=== PATIENT | female | born 1980 | race African-American/Black ===

== ENCOUNTER 2020-04-01 08:11 | Emergency (ER) | payer OTHER, SELFPAY ==
[2020-04-01 08:21] VITALS: BP 130/80; O2SAT 99
[2020-04-01 08:27] VITALS: BP 130/80; PULSE 94; RESP 20; TEMP 36.6; O2SAT 94
[2020-04-01 08:30] VITALS: PULSE 92; O2SAT 98
--- NOTE | 2020-04-01 08:43 | DI.RAD.S_ITS ---
PROCEDURE: XR CHEST 1V INDICATIONS: Cough and SOB TECHNIQUE: One view of the chest was acquired. COMPARISON: None. FINDINGS: Surgical changes and devices: None. Lungs and pleura: Patchy bilateral interstitial infiltrates and patchy areas consolidation in the left lung base. No pleural effusions or pneumothorax. Mediastinum: Mediastinal contours appear normal. Heart size is normal. Bones and chest wall: No suspicious bony lesions. Overlying soft tissues appear unremarkable. IMPRESSION: Patchy bilateral infiltrates may potentially represent viral pneumonia. Dictated by: Nael Linda M.D. on 04/01/2020 at 9:19 Approved by: Nael Linda M.D. on 04/01/2020 at 9:23
[2020-04-01 09:00] VITALS: PULSE 87; O2SAT 98
[2020-04-01 09:19] LABS: COVID19 -Nasal RAPID POSITIVE (Negative)
[2020-04-01 09:30] VITALS: PULSE 89; O2SAT 99
--- NOTE | 2020-04-01 09:30 | ED.GENADULT ---
HPI - General Adult General Chief complaint: Upper Respiratory Symptoms Stated complaint: sob/coughing/chest cold Time Seen by Provider: 04/01/20 08:42 Source: patient Mode of arrival: Ambulatory Limitations: no limitations History of Present Illness HPI narrative: Patient is a 39-year-old female here for evaluation of a shortness of breath and cough and productive cough. States been going on for the past 5 days. No recent travel. No known COVID exposures. States she does not feel congested. Review of Systems Constitutional Constitutional: Denies fever(s) Cardiovascular Cardiovascular: Denies chest pain and Reports dyspnea Respiratory Respiratory: Reports cough, Reports excessive phlegm production and Reports dyspnea Gastrointestinal Gastrointestinal: Denies abdominal pain, Denies nausea and Denies vomiting Integumentary/Breasts Skin/Breast: Denies rash Neurologic Neurologic: Denies behavioral changes Psychiatric Psychiatric: Denies behavioral changes Patient History Medical History Patient denies medical problems Social History Smoking Status: Never smoker Smoking Status: Never smoker alcohol intake frequency: 0-2 drinks per day Substance Use Type: does not use Exam Initial Vital Signs Initial Vital Signs: Vital Signs Temperature 97.8 F 04/01/20 08:27 Pulse Rate 94 H 04/01/20 08:27 Respiratory Rate 20 04/01/20 08:27 Blood Pressure 130/80 04/01/20 08:27 Pulse Oximetry 94 04/01/20 08:27 Const General: cooperative and comfortable Limitations: mental status not altered HENMT Head: normal to inspection and normocephalic Resp Effort & Inspection: not labored and tachypneic Auscultation: clear to auscultation bilaterally Cardio Rate: regular rate Rhythm: regular rhythm Skin General: no rashes or lesions noted Lesions: no lesions Rashes: no rashes Extrem General: capillary refill normal Psych Appearance: grossly normal and well kempt Course Orders Ordered: ED Orders 04/01/20 08:27 COVID19 Stat 04/01/20 08:43 XR chest 1V Stat EKG-12 Lead Stat Vital Signs Vital signs: Vital Signs - 8 hr 04/01/20 08:27 Temperature 97.8 F Pulse Rate 94 H Respiratory Rate 20 Blood Pressure 130/80 Pulse Oximetry 94 Medical Decision Making Lab Data Labs: Lab Results 04/01/20 Range/Units 08:27 COVID-19 PCR Positive H (Negative) Imaging Data Chest x-ray: Radiologist's Impression: [address] [id number] ReportSigned Patient: Marisabel Varner MMR#: [id number]: [id number]:[id number]/Sex: 39 / FDate of Service: 04/01/20Loc: EDAccession Number: [id number] Procedure: XR chest 1V Ordering Provider: Chalo Summers D.O. PROCEDURE: XR CHEST 1V INDICATIONS: Cough and SOB TECHNIQUE: One view of the chest was acquired. COMPARISON: None. FINDINGS: Surgical changes and devices: None. Lungs and pleura: Patchy bilateral interstitial infiltrates and patchy areas consolidation in the left lung base. No pleural effusions or pneumothorax. Mediastinum: Mediastinal contours appear normal. Heart size is normal. Bones and chest wall: No suspicious bony lesions. Overlying soft tissues appear unremarkable. IMPRESSION: Patchy bilateral infiltrates may potentially represent viral pneumonia. Dictated by: Nael Linda M.D. on 04/01/2020 at 9:19 Approved by: Nael Linda M.D. on 04/01/2020 at 9:23 MDM Narrative Medical decision making narrative: Patient is COVID positive. She is not in any respiratory distress. Oxygen saturation greater than 96% afebrile. Has a clear lung exam however chest x-ray would be consistent with COVID. I did inform her of the diagnosis. We did discuss the fact that she needs to quarantine herself. She was given return precautions. I feel patient can be discharged home based on her clinical presentation today however she was given strict return precautions. Discharge Plan Departure Patient Disposition: Home Clinical Impression: COVID-19 Instructions: DI for COVID-19 (Suspected or Confirmed ) Activity Restrictions/Additional Instructions: Your coronavirus test was positive today. You need to quarantine your self from others. Continue all of your medications. You can take Tylenol for any fevers or body aches. Return to the emergency department for any worsening symptoms to include chest pain, shortness of breath. Referrals: Franc Ocampo DO [Primary Care Provider] -
[2020-04-01 10:02] VITALS: BP 130/80; PULSE 91; RESP 14; O2SAT 99
== END 2020-04-01 10:03 | disposition home or self-care (01) ==
PROVIDERS: Emergency Provider Emergency Medicine; PCP Pediatrics
DX: U07.1 COVID-19 (principal); R05 Cough; R06.02 Shortness of breath
CPT/HCPCS: 71045; 87635; 99281; 99283

== ENCOUNTER → 2021-05-03 09:18 | Outpatient (CLI) | payer OTHER, SELFPAY ==
[2021-05-03 10:35] LABS: COVID19 -Nasal RAPID POSITIVE (Negative)
== END ==
PROVIDERS: PCP Pediatrics; Referring Provider Nurse Practitioner Critical Care Medicine; Visit Provider Nurse Practitioner Critical Care Medicine
DX: Z20.822 Contact with and (suspected) exposure to COVID-19 (principal)
CPT/HCPCS: 87635

== ENCOUNTER → 2024-06-15 11:40 | Outpatient (CLI) | payer OTHER, SELFPAY ==
--- NOTE | 2024-06-15 11:43 | DI.MRI.S_ITS ---
PROCEDURE: MR HIP LT WO CON INDICATIONS: pain in hips TECHNIQUE: Noncontrast coronal T1 spin echo and STIR through the bony pelvis. Coronal and axial T2 fast spin echo with fat saturation, sagittal T1 spin echo, and oblique axial T2 fast spin echo with fat saturation through the hip. COMPARISON: [facility], MR, MR HIP RT WO CON, 06/15/2024, 12:01. FINDINGS: Please note that this report is combined to include the findings for the right hip. Image quality: Excellent. Bones: The bone marrow signal is normal. There is no evidence of fracture, osteonecrosis, or acetabular dysplasia. There is normal morphology of the femoral heads. Joints: The sacroiliac joints are preserved, without reactive marrow changes. The hip joints are preserved. There is no significant hip joint effusion or pericapsular edema. Acetabular cartilage: There is no focal articular cartilage defect. Labrum: There is blunting of the anterior-superior labrum is bilaterally, likely secondary to chronic labral tearing. There is no large paralabral cyst or chondrolabral separation. Bursae: There is no increased fluid within the greater trochanteric or iliopsoas bursae. Muscles: The muscles about the pelvis appear normal in signal and size. Tendons: There is mild intermediate signal at the insertions of the gluteus medius tendons on the greater trochanters bilaterally (3/18). A small amount of fluid signal is also present at the insertion of the right gluteus medius on the greater trochanter (3/18). The tendons about the pelvis otherwise appear normal in signal and size. Nerves: The sciatic nerves are normal in signal and caliber. Vessels: The dominant flow voids are preserved. Other: No other acute abnormality. IMPRESSION: 1. 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 2. No other acute MR abnormality of the pelvis or hips. Dictated by: Biju Reeder M.D. on 06/18/2024 at 17:23 Approved by: Biju Reeder M.D. on 06/18/2024 at 17:33
--- NOTE | 2024-06-15 11:43 | DI.MRI.S_ITS ---
PROCEDURE: MR HIP RT WO CON INDICATIONS: pain in hips TECHNIQUE: Noncontrast coronal T1 spin echo and STIR through the bony pelvis. Coronal and axial T2 fast spin echo with fat saturation, sagittal T1 spin echo, and oblique axial T2 fast spin echo with fat saturation through the hip. COMPARISON: None. FINDINGS: Please see the same-day MRI left hip without contrast report for further details. IMPRESSION: Please see the same-day MRI left hip without contrast report for further details. Dictated by: Biju Reeder M.D. on 06/18/2024 at 17:33 Approved by: Biju Reeder M.D. on 06/18/2024 at 17:34
== END ==
PROVIDERS: Referring Provider Nurse Practitioner Family; Visit Provider Nurse Practitioner Family
DX: M25.551 Pain in right hip (principal); S76.011A Strain of muscle, fascia and tendon of right hip, initial encounter
CPT/HCPCS: 73721